=== PATIENT | male | born 1965 | race Caucasian/White ===

== ENCOUNTER 2018-10-21 19:13 | Emergency (ER) | payer OTHER ==
[2018-10-21 20:06] VITALS: RESP 18
[2018-10-21] MEDS ORDERED: SODIUM CHLORIDE 0.9% 1,000 ML IV STA (20:46)
[2018-10-21 21:19] LABS: Basophils % (A) 1 %; Eosinophils # (A) 0.2 k/uL (0-0.7); Eosinophils % (A) 2 %; HCT 38.1 % (39.0-53.0); HGB 13.1 gm/dL (13.0-17.5); Lymphocytes # (A) 2.5 k/uL (1.0-4.8); Lymphocytes % (A) 33 %; MCHC 34.5 g/dL (31.0-37.0); Mean Platelet Volume 7.4; Monocytes # (A) 0.4 k/uL (0-1.0); Monocytes % (A) 5 %; Neutrophils # (A) 4.1 k/uL (1.3-7.7); Neutrophils % (A) 56 %; Platelet Count 325 k/uL (150-450); RBC 4.38 m/uL (4.30-5.90); RDW 14.1 % (11.5-15.5); WBC 7.4 k/uL (3.8-10.6)
[2018-10-21 21:22] LABS: Amylase 48 U/L (30-110); Lipase 117 U/L (23-300)
--- NOTE | 2018-10-21 21:34 | XR ---
EXAMINATION TYPE: XR KUB DATE OF EXAM: 10/21/2018 9:29 PM CLINICAL HISTORY: Diffuse abdominal pain and bloating. TECHNIQUE: Two Upright KUB images of the abdomen are obtained. COMPARISON: None. FINDINGS: Scattered gas is seen in non-distended stomach and small bowel loops. Gas and fecal materia l is seen in non-distended colon. Left-sided pelvic phlebolith is present. Lung bases are clear. No p neumoperitoneum. Myif-ft-cumuhrjr axial joint space loss in both hips. Visualized osseous structures are intact. IMPRESSION: Overall nonobstructive bowel gas pattern.
[2018-10-21 21:37] LABS: Appearance,Urine Clear (Clear); Bilirubin,Urine Negative (Negative); Blood,Urine Negative (Negative); Color,Urine Yellow; Glucose,Urine (UA) Negative (Negative); Ketones,Urine Negative (Negative); Leukocyte Esterase,Urine Negative (Negative); Mucus,Urine Moderate /hpf; Nitrite,Urine Negative (Negative); PH, Urine 5.5 (5.0-8.0); Protein,Urine 1+ (Negative); RBC,Urine <1 /hpf (0-5); Specific Gravity,Urine 1.031 (1.001-1.035); Urobilinogen,Urine <2.0 mg/dL (<2.0); WBC,Urine 1 /hpf (0-5)
[2018-10-21 21:38] VITALS: TEMP 97.8
[2018-10-21 22:00] LABS: ALT 45 U/L (21-72); AST 28 U/L (17-59); Albumin 4.9 g/dL (3.5-5.0); Alkaline Phosphatase 94 U/L (38-126); Anion Gap 14 mmol/L; Blood Urea Nitrogen 22 mg/dL (9-20); Calcium 9.9 mg/dL (8.4-10.2); Carbon Dioxide 20 mmol/L (22-30); Chloride 105 mmol/L (98-107); Glucose 92 mg/dL (74-99); Potassium 4.2 mmol/L (3.5-5.1); Sodium 139 mmol/L (137-145); Total Bilirubin 0.5 mg/dL (0.2-1.3); Total Protein 9.3 g/dL (6.3-8.2)
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
[2018-10-21 22:36] VITALS: BP 116/78; PULSE 76
== END 2018-10-21 22:36 | disposition home or self-care (01) ==
LOC: EC 19:13
DX: R51 Headache (principal); R10.84 Generalized abdominal pain; R11.10 Vomiting, unspecified; R19.7 Diarrhea, unspecified; K21.9 Gastro-esophageal reflux disease without esophagitis; Z79.899 Other long term (current) drug therapy
CPT/HCPCS: 36415; 74018; 80053; 81001; 82150; 83690; 84484; 85025; 96360; 99284